=== PATIENT | female | born 1945 ===

== ENCOUNTER 2017-12-19 04:40 | Day surgery (SDC) | payer OTHER ==
[2017-12-19] MEDS ORDERED: MACROBID 100 M100 MG PO (10:22)
[2017-12-19] MEDS ORDERED: ULTRACET PO (10:23)
== END 2017-12-19 12:35 | disposition home or self-care (01) ==
LOC: CIR.AMB 04:40
DX: N81.3 Complete uterovaginal prolapse (principal)